=== PATIENT | male | born 1995 | race African-American/Black ===

== ENCOUNTER 2018-01-18 22:48 | Emergency (ER) | payer OTHER ==
[~2018-01-18] VITALS: Ht 180.3 cm; Wt 90.7 kg
--- NOTE | 2018-01-18 22:53 | Emergency Room Report ---
History of Present Illness General Chief Complaint: Substance Abuse Source: Patient Present Illness HPI Is a 22-year-old male with a history of substance abuse. He presents via EMS with altered mental status. Per EMS parents called 911 because he was drinking alcohol and possibly using Xanax. Patient denies using Xanax. He admits to alcohol. Denies suicidal thoughts or homicidal thought. Does not want any intervention. No nausea no vomiting. No fever chills but no other complaint. Allergies: Coded Allergies: NO KNOWN ALLERGIES (Unverified Allergy, Unknown, 01/14/15) Patient History Past Medical History: see triage record, old chart reviewed Past Surgical History: none Pertinent Family History: none Social History: Reports: alcohol use, drug use Immunizations: other Reviewed Nursing Documentation: PMH: Agreed; PSxH: Agreed Nursing Documentation-PM Past Medical History: No History, Except For History Of Psychiatric Problem: Yes Review of Systems Eye: Denies: eye pain, blurred vision ENT: Denies: ear pain, nose congestion, throat swelling Respiratory: Denies: cough, shortness of breath Cardiovascular: Denies: chest pain, palpitations Gastrointestinal: Denies: abdominal pain, diarrhea, nausea, vomiting Musculoskeletal: Denies: back pain, joint pain Skin: Denies: rash Neurological: Denies: headache, numbness Endocrine: Denies: increased thirst, increased urine Hematologic/Lymphatic: Denies: easy bruising All Other Systems: negative except mentioned in HPI Physical Exam Vital Signs Date Time Temp Pulse Resp B/P (MAP) Pulse Ox O2 Delivery O2 Flow Rate FiO2 01/18/18 22:39 98.2 92 16 148/89 99 Room Air Sp02 EP Interpretation: reviewed, normal General Appearance: well appearing, no apparent distress, alert, other - Slurring speech, intoxicated Head: normocephalic, atraumatic Eyes: bilateral eye PERRL, bilateral eye EOMI ENT: hearing grossly normal, normal pharynx Neck: full range of motion, supple, no meningismus Respiratory: chest non-tender, lungs clear, normal breath sounds Cardiovascular #1: regular rate, rhythm, no murmur Gastrointestinal: normal bowel sounds, non tender, no mass, no organomegaly, no bruit, non-distended Musculoskeletal: back normal, normal range of motion Neurologic: alert, oriented x3 Psychiatric: mood/affect normal Skin: warm/dry Medical Decision Making Diagnostic Impression: Primary Impression: Alcohol intoxication Qualified Codes: F10.920 - Alcohol use, unspecified with intoxication, uncomplicated Additional Impression: Benzodiazepine abuse ER Course Patient presents with intoxication from combination of benzodiazepine and alcohol. He slowly is sobering up. He keeps trying to get up and walk out of here. His father came to pick him up. He has no trauma to warrant x-ray or CT scan. He was here before for the same thing. Last Vital Signs Date Time Temp Pulse Resp B/P (MAP) Pulse Ox O2 Delivery O2 Flow Rate FiO2 01/18/18 22:39 98.2 92 16 148/89 99 Room Air Status: improved Disposition: HOME, SELF-CARE Condition: Stable Additional Instructions: Stop using alcohol and abusing Xanax. Follow-up with your doctor in 7 days. Follow-up with rehabilitation. Return if worse. Saleem Hunt MD Jan 18, 2018 22:53
[2018-01-18 23:29] VITALS: BP 118/97
[2018-01-19 00:30] VITALS: BP 115/75
== END 2018-01-19 00:22 | disposition home or self-care (01) ==
LOC: EDBD 22:48 → EMR 23:05
DX: F10.129 Alcohol abuse with intoxication, unspecified (principal); F13.10 Sedative, hypnotic or anxiolytic abuse, uncomplicated; R41.82 Altered mental status, unspecified
CPT/HCPCS: 36415; 80307; 99283; G0480; 80329

== ENCOUNTER 2019-01-04 19:12 | Emergency (ER) | payer OTHER ==
[~2019-01-04] VITALS: Ht 180.3 cm; Wt 113.4 kg
[2019-01-04 19:55] VITALS: BP 122/68
--- NOTE | 2019-01-04 19:55 | NUR ---
ED Nurse Note: pt brought in by ambulance for possible overdose on klonopin with unknown amount. pt tated he did not take anything and wasnts to leave the hospital. pt is ambulatory. pt is alert x3.
[2019-01-04 20:00] VITALS: BP 120/76
--- NOTE | 2019-01-04 20:00 | NUR ---
AMA: SEE AMA FORM.
--- NOTE | 2019-01-04 22:29 | Emergency Room Report ---
History of Present Illness General Chief Complaint: Overdose Source: EMS Present Illness HPI 23-year-old male with possible history brought in by paramedics for possible overdose on Klonopin. Patient himself denies taking any Klonopin. According the paramedics patient's father patient is into roth after overdosing on Klonopin. Father is not here to hospital with him. Patient has a small laceration in the left eyelid and some contusion around the periorbital however denies dizziness, loss of consciousness, headache, nausea vomiting. Denies all other injuries, chest pain, shortness of breath, palpitation, and other associated symptoms. Denies taking any alcohol, or any drug use. Patient reports that he understands that he does not want to be here and he understands the outcome of leaving AGAINST MEDICAL ADVICE however he decided to leave AGAINST MEDICAL ADVICE. Patient stable at time of discharge. Patient does not elicit any suicidal or homicidal ideations. Allergies: Coded Allergies: NO KNOWN ALLERGIES (Unverified Allergy, Unknown, 01/14/15) Patient History Past Medical History: see triage record Past Surgical History: unable to obtain Family History: none Immunizations: UTD Reviewed Nursing Documentation: PMH: Agreed; PSxH: Agreed Nursing Documentation-PMH Past Medical History: No History, Except For History Of Psychiatric Problem: Yes Review of Systems All Other Systems: negative except mentioned in HPI Physical Exam Vital Signs Date Time Temp Pulse Resp B/P (MAP) Pulse Ox O2 Delivery O2 Flow Rate FiO2 01/04/19 19:08 98.4 105 18 120/68 (85) 99 Room Air 01/04/19 19:55 97 Sp02 EP Interpretation: reviewed, normal General Appearance: alert/responsive, no apparent distress, GCS 15, non-toxic Head: atraumatic Eyes: PERRL, lids + conjunctiva normal ENT: hearing intact, no angioedema Neck: supple/symm/no masses, no meningismus Respiratory: effort normal, no wheezing, chest symmetrical Cardiovascular: regular rate, rhythm, no edema Gastrointestinal: non-tender, no mass, non-distended, no rebound/guarding, normal bowel sounds Musculoskeletal: gait & station normal, strength & tone normal, normal ROM, non -tender, other - left eyelid lac, periorbital eccymosis Neurologic: oriented x3, sensory intact, normal speech Psychiatric: judgment & insight normal, mood normal Skin: no rash Lymphatic: normal inspection Medical Decision Making FLO Attestation All my diagnosis and treatment plans were reviewed ad discussed with my supervising physician Dr. Carrera Diagnostic Impression: Primary Impression: Left against medical advice ER Course 23-year-old male with possible history brought in by paramedics for possible overdose on Klonopin. Patient himself denies taking any Klonopin. According the paramedics patient's father patient is into roth after overdosing on Klonopin. Father is not here to hospital with him. Patient has a small laceration in the left eyelid and some contusion around the periorbital however denies dizziness, loss of consciousness, headache, nausea vomiting. Denies all other injuries, chest pain, shortness of breath, palpitation, and other associated symptoms. Denies taking any alcohol, or any drug use. Patient reports that he understands that he does not want to be here and he understands the outcome of leaving AGAINST MEDICAL ADVICE however he decided to leave AGAINST MEDICAL ADVICE. Patient stable at time of discharge. Patient does not elicit any suicidal or homicidal ideations. Ddx considered but are not limited to: cerebral hematoma, concussion, skull fracture, head contusion Vital signs: are WNL, pt. is afebrile H&PE are most consistent with: Facial contusion ORDERS: Patient left AGAINST MEDICAL ADVICE before orders were done ED INTERVENTIONS: None required at this time. Patient with AGAINST MEDICAL ADVICE, stable at time of discharge Last Vital Signs Date Time Temp Pulse Resp B/P (MAP) Pulse Ox O2 Delivery O2 Flow Rate FiO2 01/04/19 20:00 98.4 99 17 120/76 98 Room Air 01/04/19 19:55 97 Disposition: AGAINST MEDICAL ADVICE Condition: Unknown Referrals: [facility] (PCP) Blanca Ring Jan 04, 2019 22:29
--- NOTE | 2019-01-08 12:06 | Cardiology Report ---
APPROVED REPORT EKG Measurement Heart [id number] Normal sinus rhythm Normal ECG
== END 2019-01-04 20:00 | disposition left against medical advice (07) ==
LOC: EDBD 19:12 → EMR 20:00
DX: S01.112A Laceration without foreign body of left eyelid and periocular area, initial encounter (principal); S00.83XA Contusion of other part of head, initial encounter; Z86.59 Personal history of other mental and behavioral disorders; W22.01XA Walked into wall, initial encounter; Y92.9 Unspecified place or not applicable
CPT/HCPCS: 93005; 99282